=== PATIENT | male | born 1975 | race Caucasian/White ===

== ENCOUNTER 2023-12-03 07:28 | Emergency (ER) | payer OTHER, SELFPAY ==
[2023-12-03 07:38] VITALS: BP 123/80; PULSE 82; TEMP 36.3; O2SAT 99; BMI 27.8
--- NOTE | 2023-12-03 08:12 | ED_ITS ---
HPI - Extremity Injury (Lower) General Chief Complaint: Extremity Pain/Injury, Lower Stated Complaint: LT achilles injury Time Seen by Provider: 12/03/23 07:53 History of Present Illness HPI Narrative: This 48-year-old male comes in with an injury to his left Achilles tendon. He states that he was playing basketball and simply made a turn and felt like somebody kicked him in the back of his lower leg. He heard a pop and felt a pop and now has a palpable step-off of his Achilles tendon in the left lower extremity. He states that he did not take any food yet today and otherwise is in good health. Related Data Previous Rx's ?Medication ?Instructions ?Recorded hydrocodone 5 mg-acetaminophen 325 1 tab PO Q4-6H PRN pain #20 tabs 12/03/23 mg tablet Allergies Allergy/AdvReac Type Severity Reaction Status Date / Time No Known Drug Allergies Allergy Verified 12/03/23 07:41 Review of Systems Status of ROS: Reports: 10 or more systems reviewed and unremarkable except as noted in History and below Narrative: Constitutional: No fevers, no weight gain or loss. Eyes: No discharge. No vision changes. HENT: No congestion, no sore throat, no ear pain. Cardiovascular: No chest pain, no palpitations. Respiratory: No shortness of breath, no wheezes, no cough. Gastrointestinal: No abdominal pain, no vomiting, no diarrhea. Genitourinary: No dysuria, no hematuria. Musculoskeletal: Left Achilles tendon injury. Skin: No rashes, no pruritis. Neurological: No dizziness, weakness, sensory change, speech change. Endo/Heme/Allergies: No bruising or bleeding. No polydipsia. Pysch: no suicidality, no anxiety, no insomnia. All other systems reviewed and are negative. Exam Narrative: Exam Narrative: Constitutional: Well-developed, well-nourished, no acute distress. HEENT: Normocephalic, atraumatic. Neck: Normal range of motion. Nontender. Supple. Heart: Intact distal pulses. Lungs: No chest discomfort. No wheezes, rhonchi, or rales. Abdomen: Nontender. Back: Normal range of motion. Extremities: He is unable to plantar flex his left foot. There is a palpable step-off of the Achilles tendon. Skin: Intact. No rash. Warm. No erythema or pallor. Neurologic: No altered sensation. No weakness. Alert and oriented. Psychiatric: No suicidality. No anxiety or depression. No insomnia. Nursing notes and vitals signs are reviewed. Const: Vital Signs, click to edit/add: Vital Signs - 24 hr 12/03/23 07:38 Temperature 97.4 F L Pulse Rate [Right Pulse Oximeter] 82 Blood Pressure [Ri ght Upper Arm] 123/80 Pulse Oximetry 99 Oxygen Delivery Me thod Room Air Course Vital Signs Vital signs: Initial Vital Signs Temperature 97.4 F L 12/03/23 07:38 Temperature Source Temporal Artery Scan 12/03/23 07:38 Pulse Rate 82 12/03/23 07:38 Pulse Rhythm Regular 12/03/23 07:38 Pulse Strength 3+ Normal 12/03/23 07:38 Blood Pressure 123/80 12/03/23 07:38 Blood Pressure Mean 94 12/03/23 07:38 Blood Pressure Position Sitting 12/03/23 07:38 Pulse Oximetry 99 12/03/23 07:38 Oxygen Delivery Method Room Air 12/03/23 07:38 Vital Signs Temperature 97.4 F L 12/03/23 07:38 Pulse Rate 82 12/03/23 07:38 Blood Pressure 123/80 12/03/23 07:38 Pulse Oximetry 99 12/03/23 07:38 Oxygen Delivery Method Room Air 12/03/23 07:38 Temperature 97.4 F L 12/03/23 07:38 Pulse Rate 82 12/03/23 07:38 Blood Pressure 123/80 12/03/23 07:38 Pulse Oximetry 99 12/03/23 07:38 Oxygen Delivery Method Room Air 12/03/23 07:38 MDM - Extremity Injury (Lower) MDM Narrative Medical decision making narrative: This patient comes in with an Achilles tendon rupture of the left lower extremity. I connected with orthopedic physician's assistant department manager on-call who checked with the OR schedule today. There was absolutely no opportunity to r epair this wound today. The patient was placed in a posterior splint using [employer] material. He states that he has crutches at home. He did receive a prescription for [place]. Orthopedic department will contact him for ongoing management. Discharge Plan Discharge Clinical Impression: Achilles tendon rupture Patient Disposition: Home w/ Parent or Adult Condition: Stable Additional Instructions: Wear splint and use crutches for ambulating. Take medication as needed and directed. Orthopedic clinic will give a call for ongoing management. You may also call by dialing [phone]. Prescriptions: New hydrocodone-acetaminophen 5-325 mg tablet 1 tab PO Q4-6H PRN (Reason: pain) Qty: 20 0RF Stand Alone Forms: [employer] Info Instructions
== END 2023-12-03 09:17 | disposition home or self-care (01) ==
PROVIDERS: Emergency Provider Emergency Medicine Emergency Medical Services
DX: S86.012A Strain of left Achilles tendon, initial encounter (principal); X50.1XXA Overexertion from prolonged static or awkward postures, initial encounter; Y93.67 Activity, basketball
CPT/HCPCS: 29515; 99283; 99284